=== PATIENT | female | born 1970 | race Caucasian/White ===

== ENCOUNTER → 2020-12-27 | Outpatient (CLI) | payer OTHER ==
[~2020-12-27] MED LIST: magnesium PO
== END | disposition home or self-care (01) ==
LOC: STAR 08:06
PROVIDERS: ATTEND Surgery
DX: Z20.822 Contact with and (suspected) exposure to COVID-19 (principal); K42.9 Umbilical hernia without obstruction or gangrene
CPT/HCPCS: U0003; U0005

== ENCOUNTER 2021-01-02 07:06 | Day surgery (SDC) | payer OTHER ==
[~2021-01-02] VITALS: Ht 170.2 cm; Wt 53.9 kg
[~2021-01-02 07:06] MED LIST changes: +BUPIVACAINE/PF 0.5% ONE; +EPINEPHRINE 1 MG/ML, 1ML ONE
[2021-01-02] MEDS ORDERED: MIDAZOLAM 1 MG/ML, 2ML ONE (07:59)
[2021-01-02] MEDS ORDERED: FENTANYL PF 100 MCG/2ML ONE ×2 (07:59→10:01)
[2021-01-02] MEDS ORDERED: SUCCINYLCHOLINE 20 MG/ML, 10ML ONE (08:04)
[2021-01-02] MEDS ORDERED: CEFAZOLIN 1,000 MG ONE ×2 (08:04)
[2021-01-02] MEDS ORDERED: ONDANSETRON 2MG/ML, 2ML ONE (08:05)
[2021-01-02] MEDS ORDERED: PROPOFOL 10 MG/ML, 20ML ONE (08:05)
[2021-01-02 08:20] VITALS: BP 106/69
[2021-01-02] MEDS ORDERED: CHLORHEXIDINE 15 ML UDC ONE (08:24)
[2021-01-02 08:26] LABS: HCG UR SG 1.006 (1.003-1.030)
[2021-01-02] MEDS ORDERED: LACTATED RINGERS 1,000 ML IV SCH (08:30)
[2021-01-02] MEDS ORDERED: CHLORHEXIDINE 15 ML UDC PO ONE (08:30)
[2021-01-02] MEDS ORDERED: KETOROLAC 30 MG/1 ML ONE (08:45)
[2021-01-02] MEDS ORDERED: BUPIVACAINE/PF-EPI 0.5% 1:200K INFIL ONE (08:59)
[2021-01-02] MEDS ORDERED: FENTANYL PF 100 MCG/2ML IV PRN (09:00)
[2021-01-02] MEDS ORDERED: OXYcodone 5 MG/5 ML ORAL.SOL UDC PO PRN (09:00)
[2021-01-02] MEDS ORDERED: ACETAMINOPHEN 325 MG TABLET PO PRN (09:00)
[2021-01-02] MEDS ORDERED: MEPERIDINE/PF 25MG/0.5ML IVPush PRN (09:00)
[2021-01-02] MEDS ORDERED: HYDROmorphone 1 MG/ML, 1ML INJ IVPush PRN (09:00)
[2021-01-02] MEDS ORDERED: ONDANSETRON 2MG/ML, 2ML IVPush PRN (09:00)
[2021-01-02] MEDS ORDERED: ONDA4TAB7 PO (09:30)
[2021-01-02] MEDS ORDERED: HYDR-2214 PO (09:30)
[2021-01-02] MEDS ORDERED: OXYcodone 5 MG/5 ML ORAL.SOL UDC ONE (10:01)
[2021-01-02] MEDS ORDERED: ACETAMINOPHEN 650 MG/20.3 ML UDC ONE (10:01)
== END 2021-01-02 12:35 | disposition home or self-care (01) ==
LOC: OUT 07:06
PROVIDERS: ATTEND Surgery
DX: K42.0 Umbilical hernia with obstruction, without gangrene (principal); F12.90 Cannabis use, unspecified, uncomplicated
CPT/HCPCS: 49587; 81025; J0171; J0330; J0690; J1885; J2250; J2405; J2704; J3010; J7120